=== PATIENT | female | born 1965 | race Caucasian/White ===

== ENCOUNTER → 2018-01-01 | Outpatient (CLI) | payer OTHER ==
[~2018-01-01] MED LIST: BENTYL20 MG PO; DIAZ10 PO; ONDA4 PO; OXYC5 PO; PROM25 PO; SERT100 PO; SUCR1 PO
== END ==
LOC: LAB 08:40 → LAB SHORT 08:40
DX: N39.0 Urinary tract infection, site not specified (principal)
CPT/HCPCS: 87077; 87086; 87186